=== PATIENT | male | born 2000 | race Two or more races ===

== ENCOUNTER 2025-01-17 15:50 | Emergency (ER) | payer OTHER ==
[~2025-01-17] VITALS: Ht 170.2 cm; Wt 59.0 kg
[2025-01-17 15:58] VITALS: TEMP 98.2
[2025-01-17] MEDS ORDERED: EPIN0.3P3 IM (16:36)
[2025-01-17] MEDS: FAMOTIDINE/PF INJ 20 MG/2 ML VIAL IV ONE (17:26)
[2025-01-17] MEDS: diphenhydrAMINE HCL 50 MG/ML VIAL IV ONE (17:26)
[2025-01-17] MEDS: methylPREDNISolone SOD SUCC 125 MG/2ML VIAL IV ONE (17:27)
[2025-01-17 18:30] VITALS: BP 110/70; O2SAT 98
== END 2025-01-17 16:45 | disposition home or self-care (01) ==
LOC: ER 16:02
DX: R09.89 Other specified symptoms and signs involving the circulatory and respiratory systems (principal); T78.1XXA Other adverse food reactions, not elsewhere classified, initial encounter; X58.XXXA Exposure to other specified factors, initial encounter